=== PATIENT | male | born 1990 | race Caucasian/White ===

== ENCOUNTER 2016-05-30 05:44 | Emergency (ER) | payer OTHER ==
--- NOTE | ~2016-05-30 | CT2 ---
[facility] A Service of [facility] RADIOLOGY TEXT RESULTS PATIENT: SAE JOSEPH LOCATION: [facility] : [birth year] UNIT #: [id number] AGE: [address]: Janet Millan APRN SEX: M ORDER DR: [id number] [facility] [address] [place], [place] [address] [id number] E MR#: [id number] #: [id number] NAME: SAE JOSEPH : 1990 SEX: M STUDY DATE/TIME: 05/30/2016 7:21 UNIT: [facility] ROOM: STUDY DESCRIPTION: CT Abd and Pelv W Cont Attending Physician: Janet Millan A.P.R.N. Ordering Physician: Shaka Guadarrama P.A.-C. Primary Care Physician: J Carlos Meier MEDICAL IMAGING REPORT This report is preliminary unless electronic signature is present EXAM CT abdomen and pelvis with contrast 05/30/2016 HISTORY 26-year-old male in the ED complaining of lower abdomen pain, nausea and vomiting beginning yesterday afternoon. Body aches and chills beginning at about midnight. TECHNIQUE CT examination of the abdomen and pelvis with IV contrast. GI contrast was not ordered, limiting evaluation of the GI tract. This CT examination was performed with one or more of the following radiation dose reduction techniques: automatic exposure control, adjustment of mA and/or kV according to patient size, and iterative reconstruction. FINDINGS ABDOMEN: Liver, pancreas and spleen are normal in size and appearance. Nondistended gallbladder. No bile duct dilatation. Both kidneys are negative with no evidence of urinary obstruction. Small bowel and colon are normal in caliber and appearance. The appendix is not directly visualized, but there is no indirect CT evidence of acute appendicitis. PELVIS: Tiny amount of free pelvic fluid, nonspecific. Bladder, prostate and rectum are within normal limits. No inguinal hernia or abdominal wall hernia. Limited lung base images show no active disease in the lower chest. Chronic-appearing pulmonary and pleural scarring in the left posterior lung base. IMPRESSION 1. No acute abnormality within the abdomen or pelvis. 2. Tiny amount of free pelvic fluid, nonspecific. [facility] A Service of [facility] RADIOLOGY TEXT RESULTS PATIENT: SAE JOSEPH [id number] : [birth year] UNIT #: [id number] AGE: [address]: Janet Millan APRN SEX: M ORDER DR: 3. The appendix is not identified, but there is no indirect CT evidence of acute appendicitis. Dictated by... Macho Elias M.D. THIS IS AN ELECTRONICALLY VERIFIED REPORT Macho Elias M.D. at 05/30/2016 3:55 PM IMANI/suad TD: 05/30/2016 10:09 JOB #: [id number] MEDICAL IMAGING REPORT Page 1 of 1 COPY
[~2016-05-30 05:44] MED LIST: AMOXICILLI250 MG/5 M PO; AUGMENTIN875 MG PO; NO MEDICATIONS
[2016-05-30 06:12] LABS: INFLUENZA A NEG (NEG); INFLUENZA B NEG (NEG)
[2016-05-30 06:29] LABS: BASOPHIL% 0.2 % (0-2.5); DIFF IND YES; EOSINOPHIL# 0.1 X10e3 (0-0.7); EOSINOPHIL% 0.3 % (0.0-7.0); HEMATOCRIT 45.9 % (38.0-50.0); HEMOGLOBIN 15.1 gm/dL (13.0-16.0); LYMPHOCYTE# 1.2 X10e3 (1.0-3.5); LYMPHOCYTE% 6.3 % (17.0-45.0); MEAN CELL VOLUME 87.8 FL (83-96); MEAN CORPUSCULAR HEMOGLOBIN 28.8 PG (28-34); MEAN CORPUSCULAR HGB CONC 32.8 g/dL (30-36); MEAN PLATELET VOLUME 10.4 FL (6.5-11.5); MONOCYTE% 5.1 % (3.0-12.0); NEUTROPHIL# 16.9 X10e3 (1.5-7.1); NEUTROPHIL% 88.1 % (40-75); PLATELET COUNT 208 X10e3 (140-420); RED BLOOD COUNT 5.23 X10e (3.90-5.60); RED CELL DISTRIBUTION WIDTH 13.3 % (11.0-15.5); WHITE BLOOD COUNT 19.2 X10e3 (4.0-10.5)
[2016-05-30 06:48] LABS: PLATELET ESTIMATE NORMAL (NORMAL)
[2016-05-30 06:57] LABS: URINE SOURCE CLEAN CATCH
[2016-05-30 07:03] LABS: BUN/CREATININE RATIO 17.27; CREATININE SERUM 1.1 mg/dL (0.6-1.4); GLOM FILT RATE Estimated 92.2 mL/min (>60); POTASSIUM 4.3 mmol/L (3.5-5.1)
[2016-05-30 07:15] LABS: URINE APPEARANCE CLEAR; URINE BILIRUBIN NEG (NEG); URINE BLOOD NEG (NEG); URINE COLOR YELLOW; URINE GLUCOSE NEG (NEG); URINE KETONE 3+ (NEG); URINE LEUKOCYTE ESTERASE NEG (NEG); URINE NITRATE NEG (NEG); URINE PH 7.5 (5-8); URINE PROTEIN NEG (NEG); URINE SPECIFIC GRAVITY 1.032 (1.003-1.035)
[2016-05-30 07:21] LABS: CULTURE INDICATED? NO
== END 2016-05-30 08:30 | disposition home or self-care (01) ==
LOC: CED 05:44
PROVIDERS: Physician Assistant
DX: R10.31 Right lower quadrant pain (principal); R10.32 Left lower quadrant pain; R11.2 Nausea with vomiting, unspecified; I10 Essential (primary) hypertension
CPT/HCPCS: 36415; 74177; 80048; 81003; 85025; 87651; 87804; 96361; 96374; 99284; J2405; Q9967